=== PATIENT | female | born 1970 | race Hispanic/Latino ===

== ENCOUNTER 2018-01-27 05:46 | Day surgery (SDC) | payer OTHER ==
[~2018-01-27] VITALS: Ht 165.1 cm; Wt 76.6 kg
[~2018-01-27 05:46] MED LIST: AMLO10TA2 PO; ERGO400T7 PO; FENO145T37 PO; HYDR-4154 PO; LOSA1TAB54 PO; PREN-64 PO
[2018-01-27 06:10] VITALS: BP 120/58
[2018-01-27] MEDS ORDERED: SODIUM CHLORIDE 0.9% 1000ML 1,000 ML IV ONE (06:38)
[2018-01-27] MEDS ORDERED: GLYCOPYRROLATE 0.2 MG/ML 5 ML VIAL ONE (07:12)
[2018-01-27] MEDS ORDERED: PROPOFOL 1000 MG/100 ML 100 ML IV ONE (07:12)
[2018-01-27] MEDS ORDERED: LIDOCAINE HCL 2% 20ML ONE (07:12)
[2018-01-27] MEDS ORDERED: PHENYLEPHRINE HCL 10 MG/ML 1ML VIAL IV ONE (07:12)
[2018-01-27] MEDS ORDERED: SUCCINYLCHOLINE CHLORIDE 20 MG/ML 10 ML VIAL ONE (07:12)
== END 2018-01-27 08:00 | disposition home or self-care (01) ==
LOC: ENDO 05:46 → DAH 05:46 → ENDO 08:00
PROVIDERS: ATTEND Internal Medicine
DX: K57.30 Diverticulosis of large intestine without perforation or abscess without bleeding (principal); K63.89 Other specified diseases of intestine; K64.8 Other hemorrhoids; K64.4 Residual hemorrhoidal skin tags; E78.4 Other hyperlipidemia; I10 Essential (primary) hypertension; M19.90 Unspecified osteoarthritis, unspecified site; M32.8 Other forms of systemic lupus erythematosus; K44.9 Diaphragmatic hernia without obstruction or gangrene; Z90.710 Acquired absence of both cervix and uterus; Z98.890 Other specified postprocedural states; Z79.899 Other long term (current) drug therapy; Z80.0 Family history of malignant neoplasm of digestive organs
CPT/HCPCS: 45380; A4606; J0330; J2370; J2704; J3490 ×2; J7030